=== PATIENT | male | born 1930 | race Caucasian/White ===

== ENCOUNTER 2017-05-06 08:55 | Inpatient (IN) | payer MEDICARE ==
[~2017-05-06] VITALS: Ht 167.6 cm; Wt 78.4 kg
[2017-05-06] MEDS ORDERED: HYDR-3133 PO (09:47)
[2017-05-06] MEDS ORDERED: TAMS0.4C4 PO (09:47)
[2017-05-06] MEDS ORDERED: MAGO400T2 PO (09:47)
[2017-05-06] MEDS ORDERED: FOLI1TAB6 PO (09:47)
[2017-05-06] MEDS ORDERED: METH2.5T PO (09:47)
[2017-05-06] MEDS ORDERED: ADVI200T17 PO (09:47)
[2017-05-06] MEDS ORDERED: DULO1CAP3 PO (09:47)
[2017-05-06] MEDS ORDERED: OXYBXL10 PO (09:47)
[2017-05-06] MEDS ORDERED: OMEP20TA PO (09:47)
[2017-05-06] MEDS ORDERED: ASPI-110 PO (09:47)
[2017-05-06] MEDS ORDERED: B-50TAB4 PO (09:47)
[2017-05-06] MEDS ORDERED: CYAN1TAB8 PO (09:47)
[2017-05-06] MEDS ORDERED: PRED2.5T PO (09:47)
[2017-05-17] MEDS ORDERED: EXPAREL PERI-ARTICULAR INJECTION (TOTAL VOL. 100 ML) P-ARTICULR SCH ×2 (07:00)
[2017-05-17] MEDS ORDERED: TRANEXAMIC ACID INJ 790 MG in SODIUM CHLORIDE 0.9% INJ 100 ML IV SCH ×4 (07:00)
[2017-05-17] MEDS ORDERED: ceFAZolin 2 GM PREMIX 50 ML IV SCH (07:00)
[2017-05-17] MEDS ORDERED: CHLORHEXIDINE GLUCONATE 4% SOLN 120 ML BTL TOPICAL SCH (07:00)
[2017-05-17] MEDS ORDERED: GENTAMICIN SULFATE 80 MG/2 ML VIAL ONE (07:05)
[2017-05-17] MEDS ORDERED: VESI10TA PO (07:09)
[2017-05-17 07:13] VITALS: BP 159/89; PULSE 114; RESP 20; TEMP 98.3; O2SAT 100
[2017-05-17] MEDS ORDERED: SODIUM CHLORID 0.9% 500 ML IV PRN (07:15)
[2017-05-17] MEDS ORDERED: CHLORHEXIDINE GLUCONATE 2 % 1 PACK (2 CLOTHS) TOPICAL PRN (07:15)
[2017-05-17] MEDS ORDERED: INSULIN HUMAN REGULAR 1,000 UNITS/10 ML VIAL SQ PRN (07:15)
[2017-05-17] MEDS ORDERED: LACTATED RINGER'S 1000 ML IV PRN (07:15)
[2017-05-17] MEDS ORDERED: METOPROLOL TARTRATE 25 MG TAB PO PRN (07:15)
[2017-05-17] MEDS ORDERED: POVIDONE IODINE 5% (ANTISEPSIS KIT) 4 APPLICATIONS EACH NARE PRN (07:15)
--- NOTE | 2017-05-17 08:40 | HHI.FF ---
Face to Face Verification Diagnosis: (1) Status post total right knee replacement Physical Therapy Gait training Knee: Total knee, Protocol: Right, Gait training, Full weight bearing Right LE Weight Bearing: WB as tolerated Right LE Range of Motion: Active ROM (AROM, AAROM, PROM, PRE. ROM goal is 0 to 135 degrees.) Nursing Nursing: Dressing changes Dressing Changes: Daily dressing change, Coverderm/Primapore Additional Instructions Remove steristrips on postop day 14. I have seen patient Kj Bradford on 05/17/17. My clinical findings support the need for the requested home health care services because: Ltd mobility - disease progression Limited ability to care for self High risk of falls I certify that my clinical findings support that this patient is homebound because: Post-op weakness Unsteady gait/balance Unsafe to leave home unassisted Rigoberto Gray MD (Charles) May 17, 2017 08:40
[2017-05-17] MEDS ORDERED: MAGNESIUM HYDROXIDE SUSP 30 ML CUP PO PRN (08:45)
[2017-05-17] MEDS ORDERED: TRANEXAMIC ACID INJ 0 MG in SODIUM CHLORIDE 0.9% INJ 100 ML IV SCH (08:45)
[2017-05-17] MEDS ORDERED: ZOLPIDEM TARTRATE 5 MG TAB PO PRN (08:45)
[2017-05-17] MEDS ORDERED: ACETAMINOPHEN/HYDROcodone 325 MG/7.5 MG TAB PO PRN (08:45)
[2017-05-17] MEDS ORDERED: MORPHINE SULFATE 4 MG/ML INJ IV PUSH PRN (08:45)
[2017-05-17] MEDS ORDERED: ONDANSETRON HCL 4 MG/2 ML VIAL IVP PRN (08:45)
[2017-05-17] MEDS ORDERED: Post-op Orders (for Pharmacy) MISC XX ONE (08:45)
[2017-05-17] MEDS ORDERED: SODIUM CHLORIDE 0.9% FLUSH 5 ML FLUSH IVF PRN (08:45)
[2017-05-17] MEDS: DULoxetine HCl DR 60 MG CAP PO SCH (09:00)
[2017-05-17] MEDS: ASPIRIN EC 81 MG TABEC PO SCH ×2 (09:00→20:55)
[2017-05-17] MEDS: SODIUM CHLORIDE 0.9% FLUSH 5 ML FLUSH IVF SCH ×2 (09:00→20:56)
[2017-05-17] MEDS: MAGNESIUM OXIDE 400 MG TAB PO SCH (09:00)
[2017-05-17] MEDS: TOLTERODINE TARTRATE 4 MG CAP LA PO SCH (11:00)
[2017-05-17] MEDS: LACTATED RINGER'S 1000 ML INJ 1,000 ML IV SCH ×2 (11:30→20:56)
[2017-05-17] MEDS ORDERED: ONDANSETRON HCL 4 MG/2 ML VIAL IV PUSH ONE (12:00)
[2017-05-17] MEDS ORDERED: PROPOFOL 200 MG/20 ML AMP IV ONE (12:00)
[2017-05-17] MEDS ORDERED: LACTATED RINGER'S 1000 ML INJ 1,000 ML IV ONE (12:00)
[2017-05-17] MEDS ORDERED: PHENYLEPH/NS 1000 MCG/10 ML SYR IV ONE (12:00)
[2017-05-17] MEDS: KETOROLAC TROMETHAMINE 30 MG/ML (IVP) VIAL IVP SCH ×3 (12:33→20:55)
--- NOTE | 2017-05-17 12:33 | RADRPT ---
EXAM DATE/TIME: 05/17/2017 11:37 [place] COMPARISON: No previous studies available for comparison. INDICATIONS : Post op right knee surgery. MEDICAL HISTORY : None. SURGICAL HISTORY : None. ENCOUNTER: Initial ACUITY: 1 day PAIN SCORE: 0/10 LOCATION: Right knee FINDINGS: Patient is status post placement of a right knee prosthesis. There is good position and alignment of the prosthesis and bony structures. The bony structures are grossly intact. Postsurgical changes are present. CONCLUSION: Good position and alignment on this postoperative examination. Baldev Philippe MD on May 17, 2017 at 12:32 Board Certified Radiologist. This report was verified electronically.
[2017-05-17] MEDS ORDERED: BUPIVACAINE HCL PF 0.5% 30 ML VIAL NERV BLOCK ONE (12:35)
[2017-05-17] MEDS ORDERED: DEXAMETHASONE SOD PHOS PF 10 MG/ML VIAL IV ONE (12:35)
[2017-05-17] MEDS ORDERED: *morphine SULFATE 8 MG/ML PERIprocedure ONLY ONE (12:54)
[2017-05-17] MEDS ORDERED: DO NOT ADM ANY ANTICOAGULANT DRUGS PRN (13:45)
[2017-05-17 15:00] VITALS: BP 149/82; PULSE 73; RESP 18; TEMP 96.1; O2SAT 97
[2017-05-17] MEDS: ACETAMINOPHEN/HYDROcodone 325 MG/7.5 MG TAB PO PRN (16:40)
--- NOTE | 2017-05-17 18:03 | PD.CONS ---
HPI Service [facility] Consult Requested By Orthopedic team, Dr. Gray Reason for Consult Assist with medical management Primary Care Physician Camilla Comer MD Diagnoses: History of Present Illness Written by Paddy Oseguera, acting as scribe for Dr. Rondon on 05/17/17 at 17: 34. Patient is an 86-year-old male with primary medical history of GERD, BPH, arthritis who came in for an elective surgery of his right knee. He is status post right total knee arthroplasty by Dr. Gray. Consulted for medical management. Patient seen and examined today. at the bedside. He is sitting up in the chair reports he is doing okay while sitting up in the chair however he has some pain when he slightly extends his right lower extremity was certain degree. Complaints of diarrhea that started today. Also complains of has not yet voided since surgery. Otherwise, denies SOB/ dyspnea. Denies chest pain, palpitations, headaches, dizziness. Denies fevers, chills, n/v/d. Review of Systems Except as stated in HPI: all other systems reviewed are Neg Past Family Social History Allergies: Coded Allergies: No Known Allergies (Verified , 05/06/17) Past Medical History Arthritis, Felty's Syndrome GERD BPH ?Overactive bladder, urinary incontinence Past Surgical History Back surgery 1992 Prostate, TURP 1999 Gallbladder removal 2002 Bilateral carpal tunnel 2007 Rotator cuff repair right in 2006, left 2008 Hand tendon repair, left 2008 Bilateral cataracts 2008 Right knee meniscus tear 2012 Left knee meniscus tear 2016 Colonoscopy 2009 Endoscopy 2014 Panendoscopy 2010 Reported Medications Reported Meds & Active Scripts Active Reported Vesicare (Solifenacin) 10 Mg Tab 10 Mg PO DAILY Magox 400 (Magnesium Oxide) 400 Mg Tablet 1 Tab PO DAILY B-12 (Cyanocobalamin (Vitamin B-12)) 500 Mcg Tablet 1 Tab PO DAILY B-50 Complex (Vitamin B Complex) 1 Each Tablet.er 1 Tab PO DAILY Advil Pm (Ibuprofen-Diphenhydramine) 200-38 Mg Tab 1 Tab PO HS PRN Aspirin 81 (Aspirin) 81 Mg Tabdr 81 Mg PO DAILY Ditropan XL 24 HR (Oxybutynin Chloride) 10 Mg Tab 10 Mg PO DAILY Hydroxyzine HCl 25 Mg Tab 25 Mg PO HS Prednisone 2.5 Mg Tab 2.5 Mg PO HS Folic Acid 1 Mg Tablet 1 Tab PO MO,,TH,FR,SA,PRAKASH Methotrexate 2.5 Mg Tab 7.5 Mg PO Q7D Tamsulosin (Tamsulosin HCl) 0.4 Mg Cap 0.4 Mg PO HS Omeprazole 20 Mg Tab 20 Mg PO DAILY Duloxetine DR (Duloxetine HCl) 60 Mg Capdr 60 Mg PO DAILY Active Ordered Medications Current Medications Medications (Trade) Dose Ordered Sig/[place] Route Start Time Stop Time Status Last Admin Chlorhexidine Gluconate 1 applic 1 applic ONCE TOPICAL 05/17/17 07:00 05/20/17 06:59 Sodium Chloride 500 ml @ 30 mls/hr [id number] PRN IV 05/17/17 07:15 05/20/17 07:14 (Lr 1000 ml Inj) 1,000 ml @ 80 mls/hr [id number] IV 05/17/17 08:32 05/17/17 11:30 (NS Flush) 2 ml UNSCH PRN IVF 05/17/17 08:45 IV Flush 2 ml 2 ml BID IVF 05/17/17 09:00 (Ancef Inj/NS Inj) 100 ml @ 200 mls/hr Q6H IV 05/17/17 15:00 05/18/17 03:29 (Morphine Inj) 4 mg Q3H PRN IV PUSH 05/17/17 08:45 ([place] 7.5-325 Mg) 1 tab Q4H PRN PO 05/17/17 08:45 05/17/17 16:40 ([place] 7.5-325 Mg) 2 tab Q4H PRN PO 05/17/17 08:45 (Toradol Inj) 15 mg Q6H IVP 05/17/17 10:00 05/19/17 04:01 05/17/17 16:31 (Zofran Inj) 4 mg Q6H PRN IVP 05/17/17 08:45 (Colace) 100 mg BID PO 05/18/17 21:00 (Ambien) 5 mg HS PRN PO 05/17/17 08:45 (Milk Of Magnesia Liq) 30 ml DAILY PRN PO 05/17/17 08:45 (Ecotrin Ec) 81 mg BID PO 05/17/17 09:00 (Cymbalta Dr) 60 mg DAILY PO 05/17/17 09:00 (Atarax) 25 mg HS PO 05/17/17 21:00 (Mag-Ox) 400 mg DAILY PO 05/17/17 09:00 (Rheumatrex) 7.5 mg Q7D PO 05/18/17 09:00 (Flomax) 0.4 mg HS PO 05/17/17 21:00 (Vitamin B12) 500 mcg DAILY PO 05/18/17 09:00 (Protonix) 20 mg DAILY PO 05/18/17 09:00 (Detrol La) 4 mg DAILY PO 05/17/17 11:00 (Deltasone) 2.5 mg HS PO 05/17/17 21:00 Patient Own Medication PT OWN MED: (Solifenacin ([place]es[place]... DAILY PO 05/18/17 09:00 ([place] C) 1 tab DAILY PO 05/18/17 09:00 Miscellaneous Information ALL NURSING DEPARTME... UNSCH PRN .XX 05/17/17 13:45 05/18/17 13:44 Family History 3 siblings have cancer, skin cancer, colon cancer Father has stomach cancer Social History lives with , has 7 children of his own 1 beer almost daily, maximum of 3 beers on special occasions Quit smoking at the age of 38 Denies illicit drug use Physical Exam Vital Signs Vital Signs Date Time Temp Pulse Resp B/P Pulse Ox O2 Delivery O2 Flow Rate FiO2 05/17/17 15:00 96.1 73 18 149/82 97 05/17/17 14:40 97.5 70 16 142/73 96 Room Air 05/17/17 14:00 72 16 147/75 96 Room Air 05/17/17 13:33 15 05/17/17 13:30 70 16 149/80 96 Room Air 05/17/17 13:00 97.8 69 16 157/85 96 Room Air 05/17/17 12:59 15 05/17/17 12:45 70 16 152/88 95 Room Air 05/17/17 12:30 97.2 69 16 153/86 95 Room Air 05/17/17 12:15 69 16 151/85 94 Room Air 05/17/17 12:00 96.9 68 15 150/89 94 Room Air 05/17/17 11:45 68 15 147/88 94 Room Air 05/17/17 11:30 96.7 67 15 149/82 95 Room Air 05/17/17 11:15 72 14 148/81 94 Room Air 05/17/17 11:00 96.3 73 14 141/72 100 Simple Mask 7 05/17/17 07:13 98.3 114 20 159/89 100 Physical Exam GENERAL: This is a well-nourished, well-developed patient, in no apparent distress. SKIN: Warm and dry. HEAD: Normocephalic. EYES: Pupils equal round and reactive. Extraocular motions intact. No scleral icterus. No injection or drainage. ENT: Nose without bleeding. Throat without erythema. Uvula midline. Airway patent. NECK: Trachea midline. Supple. CARDIOVASCULAR: Regular rate and rhythm without murmurs, gallops, or rubs. RESPIRATORY: Clear to auscultation. Breath sounds equal bilaterally. No wheezes , rales, or rhonchi. GASTROINTESTINAL: Abdomen soft, non-tender, nondistended. No guarding. Bowel Sounds active x4. MUSCULOSKELETAL: Extremities without clubbing, cyanosis, or edema. Right lower extremity with Duy wrap, pulses palpable. NEUROLOGICAL: Awake and alert. Cranial nerves II through XII intact. Motor and sensory grossly within normal limits. Normal speech. Laboratory Laboratory Tests Test 05/17/17 07:00 Blood Type O NEGATIVE Antibody Screen NEGATIVE Blood Bank Comment Imaging Last Impressions Knee X-Ray 05/17/17 0832 Signed Impressions: Service Date/Time: Wednesday, May 17, 2017 11:37 - CONCLUSION: Good position and alignment on this postoperative examination. Baldev Philippe MD Assessment and Plan Problem List: (1) Status post total right knee replacement ICD Code: Z96.651 Status: Acute (2) Primary osteoarthritis of right knee ICD Code: M17.11 Status: Acute Assessment and Plan Patient is an 86-year-old male with primary medical history of GERD, BPH, arthritis who came in for an elective surgery of his right knee. He is status post right total knee arthroplasty by Dr. Gray. Consulted for medical management. Status post right total knee arthroplasty - Managed by primary team - Pain management - Physical therapy to eval and treat - Check labs tomorrow BPH Urinary retention - Has not voided since surgery - Bladder scan, straight catheter if greater than 200 mL - Continue with Detrol, Flomax, Arthritis, Felty's syndrome - Continue methotrexate, cymbalta, prednisone GERD - pantoprazole DVT prop SCDs Code Status Full code Discussed Condition With Patient, , nursing This note was transcribed by opal Oseguera. I, Dr. Cabrera Higgins personally performed the history, physical exam, and medical decision making; and confirmed the accuracy of the information in the transcribed note. Authenticated by Dr. Cabrera Higgins on 05/17/17 at 17:34. Paddy Pastrana May 17, 2017 18:03 Cabrera Staples MD May 19, 2017 21:22
[2017-05-17 19:05] VITALS: BP 135/75; PULSE 85; RESP 18; TEMP 96.6; O2SAT 97
[2017-05-17] MEDS: TAMSULOSIN HCL 0.4 MG CAP PO SCH (20:54)
[2017-05-17] MEDS: hydrOXYzine HCL 25 MG TAB PO SCH (20:55)
[2017-05-17] MEDS: predniSONE 5 MG TAB PO SCH (20:55)
[2017-05-18] VITALS (7 sets, daily range): BP systolic 112–164; BP diastolic 64–82; PULSE 82–110; RESP 18–19; TEMP 95.8–98.8; O2SAT 94–97
[2017-05-18] MEDS: ACETAMINOPHEN/HYDROcodone 325 MG/7.5 MG TAB PO PRN (01:01)
[2017-05-18] MEDS: KETOROLAC TROMETHAMINE 30 MG/ML (IVP) VIAL IVP SCH ×4 (03:17→21:38)
--- NOTE | 2017-05-18 06:44 | PD.ORT.PN ---
Subjective Post Op Day #: 1 Subjective Remarks He is doing relatively well. There is not much pain. He had some retention requiring straight catheterization twice. Range of Motion 0 to 95 degrees. Distance Walked 30 feet with PT. Objective Vitals Vital Signs Date Time Temp Pulse Resp B/P Pulse Ox O2 Delivery O2 Flow Rate FiO2 05/18/17 03:41 96.7 86 18 140/67 94 05/18/17 00:29 21 05/18/17 00:06 96.7 88 18 164/74 95 05/17/17 19:05 96.6 85 18 135/75 97 05/17/17 15:00 96.1 73 18 149/82 97 05/17/17 14:40 97.5 70 16 142/73 96 Room Air 05/17/17 14:00 72 16 147/75 96 Room Air 05/17/17 13:33 15 05/17/17 13:30 70 16 149/80 96 Room Air 05/17/17 13:00 97.8 69 16 157/85 96 Room Air 05/17/17 12:59 15 05/17/17 12:45 70 16 152/88 95 Room Air 05/17/17 12:30 97.2 69 16 153/86 95 Room Air 05/17/17 12:15 69 16 151/85 94 Room Air 05/17/17 12:00 96.9 68 15 150/89 94 Room Air 05/17/17 11:45 68 15 147/88 94 Room Air 05/17/17 11:30 96.7 67 15 149/82 95 Room Air 05/17/17 11:15 72 14 148/81 94 Room Air 05/17/17 11:00 96.3 73 14 141/72 100 Simple Mask 7 05/17/17 07:13 98.3 114 20 159/89 100 I/O 05/17/17 05/17/17 05/17/17 05/18/17 05/18/17 05/18/17 07:00 15:00 23:00 07:00 15:00 23:00 Intake Total 1350 ml 955 ml 486 ml Output Total 190 ml 800 ml 30 ml Balance 1160 ml 155 ml 456 ml Intake Oral 240 ml IV Total 150 ml 715 ml 486 ml Other 1200 ml Output Urine Total 750 ml Drainage Total 90 ml 50 ml 30 ml Estimated Blood Loss 100 ml Bladder Scan Volume Amount 670 ml # Voids 0 # Bowel Movements 1 Imaging Last 24 hours Impressions Knee X-Ray 05/17/17 0832 Signed Impressions: Service Date/Time: Wednesday, May 17, 2017 11:37 - CONCLUSION: Good position and alignment on this postoperative examination. Baldev Philippe MD Objective Remarks He is resting comfortably, supine in bed in the [facility]. The dressing is dry and intact. The neurovascular status is intact. Assessment & Plan Ortho Post Op Day #: 1 Problem List: (1) Status post total right knee replacement Plan: Continue postop care and PT. Assessment and Plan Condition: Good. Orthoapedically stable. DVT prophylaxis: ASA, TEDs, sequentials. Discharge plans: Home with [facility]. Has appointment. Rx [place] 7.5/325. Rigoberto Gray MD (Charles) May 18, 2017 06:44
[2017-05-18] MEDS ORDERED: ASPI-99 PO (06:57)
[2017-05-18] MEDS ORDERED: HYDR-3580 PO (06:57)
[2017-05-18 08:16] LABS: HEMATOCRIT 33.8 % (39.0-51.0); REVIEW FLAG FINAL
[2017-05-18] MEDS: ASPIRIN EC 81 MG TABEC PO SCH ×2 (09:00→19:31)
[2017-05-18] MEDS: SODIUM CHLORIDE 0.9% FLUSH 5 ML FLUSH IVF SCH ×2 (09:00→19:31)
[2017-05-18] MEDS ORDERED: METHOTREXATE 2.5 MG TAB PO SCH (09:00)
[2017-05-18] MEDS: SOLIFENACIN 10 MG PO SCH (09:00)
[2017-05-18] MEDS: LACTATED RINGER'S 1000 ML INJ 1,000 ML IV SCH ×2 (09:32→19:31)
[2017-05-18] MEDS: CYANOCOBALAMIN 1,000 MCG TAB PO SCH (10:33)
[2017-05-18] MEDS: DULoxetine HCl DR 60 MG CAP PO SCH (10:33)
[2017-05-18] MEDS: TOLTERODINE TARTRATE 4 MG CAP LA PO SCH (10:33)
[2017-05-18] MEDS: PANTOPRAZOLE SOD 20 MG DELAYED RELEASE TAB PO SCH (10:34)
[2017-05-18] MEDS: MAGNESIUM OXIDE 400 MG TAB PO SCH (10:34)
[2017-05-18] MEDS: VITAMIN B COMPLEX/VIT C TAB PO SCH (10:39)
--- NOTE | 2017-05-18 13:31 | HHI.PR ---
Subjective Remarks Follow-up visit status post right total knee arthroplasty, BPH, GERD. Patient seen and examined today. Reports he's been having urinary retention which has not happened before. His usual problem is usually of urinary incontinence is why he is on Ditropan and Flomax. is at the bedside, concerned about urinary retention and also reported that patient this morning was slightly confused and it has improved after lunch. As per nursing, patient has urinary retention and has to be straight catheter 3 throughout yesterday to this morning. Otherwise, patient denies pain and discomfort. Denies SOB/ dyspnea. Denies chest pain, palpitations, headaches, dizziness. Denies fevers, chills, n/ v/d. Objective Vitals Vital Signs Date Time Temp Pulse Resp B/P Pulse Ox O2 Delivery O2 Flow Rate FiO2 05/18/17 11:54 95.8 83 18 136/64 94 05/18/17 07:51 95.8 93 18 129/68 94 05/18/17 03:41 96.7 86 18 140/67 94 05/18/17 00:29 21 05/18/17 00:06 96.7 88 18 164/74 95 05/17/17 19:05 96.6 85 18 135/75 97 05/17/17 15:00 96.1 73 18 149/82 97 05/17/17 14:40 97.5 70 16 142/73 96 Room Air 05/17/17 14:00 72 16 147/75 96 Room Air 05/17/17 13:33 15 05/17/17 13:30 70 16 149/80 96 Room Air I/O 05/17/17 05/17/17 05/17/17 05/18/17 05/18/17 05/18/17 07:00 15:00 23:00 07:00 15:00 23:00 Intake Total 1350 ml 955 ml 846 ml Output Total 190 ml 800 ml 330 ml Balance 1160 ml 155 ml 516 ml Intake Oral 240 ml 360 ml IV Total 150 ml 715 ml 486 ml Other 1200 ml Output Urine Total 750 ml 300 ml Drainage Total 90 ml 50 ml 30 ml Estimated Blood Loss 100 ml Bladder Scan Volume Amount 670 ml # Voids 0 # Bowel Movements 1 0 Result Diagram: 05/18/17 07 Imaging Last Impressions Knee X-Ray 05/17/17 0832 Signed Impressions: Service Date/Time: Wednesday, May 17, 2017 11:37 - CONCLUSION: Good position and alignment on this postoperative examination. Baldev Philippe MD Objective Remarks GENERAL: This is a well-nourished, well-developed patient, in no apparent distress. SKIN: Warm and dry. HEAD: Normocephalic. EYES: Pupils equal round and reactive. No scleral icterus. No injection or drainage. ENT: Nose without bleeding. Throat without erythema. Uvula midline. Airway patent. NECK: Trachea midline. Supple. CARDIOVASCULAR: Regular rate and rhythm without murmurs, gallops, or rubs. RESPIRATORY: Clear to auscultation. Breath sounds equal bilaterally. No wheezes , rales, or rhonchi. GASTROINTESTINAL: Abdomen soft, non-tender, nondistended. No guarding. Bowel Sounds active x4. MUSCULOSKELETAL: Extremities without clubbing, cyanosis, or edema. Right lower extremity with Duy wrap, pulses palpable. NEUROLOGICAL: Awake and alert. Oriented to self, place. Motor and sensory grossly within normal limits. Normal speech. Procedures Status post right total knee arthroplasty A/P Problem List: (1) Status post total right knee replacement ICD Code: Z96.651 Status: Acute (2) Primary osteoarthritis of right knee ICD Code: M17.11 Status: Acute Assessment and Plan Patient is an 86-year-old male with primary medical history of GERD, BPH, arthritis who came in for an elective surgery of his right knee. He is status post right total knee arthroplasty by Dr. Gray. Consulted for medical management. Status post right total knee arthroplasty - Managed by primary team - Pain management - Physical therapy to eval and treat - H&H within normal BPH Urinary retention - Has not voided since surgery - Bladder scan, straight catheter if greater than 200 mL - Continue with Detrol, Flomax - Patient has been straight cath 3. We'll repeat the bladder scan will insert Perez catheter if continues elevated in 200 retention in the bladder. - UA ordered - Check labs Arthritis, Felty's syndrome - Continue methotrexate, cymbalta, prednisone GERD - pantoprazole DVT prop SCDs Full code Discussed Condition With Patient, , nursing, Dr. Macedo Discharge Planning Plan to discharge home with home healthcare when cleared by primary team. Paddy Pastrana May 18, 2017 13:31
[2017-05-18] MEDS: TAMSULOSIN HCL 0.4 MG CAP PO SCH (19:30)
[2017-05-18] MEDS: predniSONE 5 MG TAB PO SCH (19:30)
[2017-05-18] MEDS: hydrOXYzine HCL 25 MG TAB PO SCH (19:31)
[2017-05-18] MEDS: DOCUSATE SODIUM 100 MG CAP PO SCH (19:31)
[2017-05-18 20:42] LABS: BLOOD, URINE NEG (NEG); COMMENT (UR) CULT NOT INDICATED; CULTURE IF INDICATED CULT NOT INDICATED; GLUCOSE,URINE NEG (NEG); KETONE, URINE NEG (NEG); MUCUS URINE FEW /lpf (OCC); NITRITE,URINE NEG (NEG); PH, URINE 5.5 (5.0-8.5); SQUAMOUS EPITHELIAL CELL URINE <1 /hpf (0-5); URINE COLOR YELLOW (YELLW/STRAW)
[2017-05-19 04:24] VITALS: BP 102/64; PULSE 111; RESP 18; TEMP 98.1; O2SAT 93
[2017-05-19] MEDS: KETOROLAC TROMETHAMINE 30 MG/ML (IVP) VIAL IVP SCH (04:55)
--- NOTE | 2017-05-19 07:09 | PD.ORT.PN ---
Subjective Post Op Day #: 2 Subjective Remarks He is doing quite well. There is virtually no pain. Range of Motion 0 to 98 degrees. Distance Walked 50 feet. Objective Vitals Vital Signs Date Time Temp Pulse Resp B/P Pulse Ox O2 Delivery O2 Flow Rate FiO2 05/19/17 04:24 98.1 111 18 102/64 93 05/18/17 23:48 98.8 110 18 112/64 94 05/18/17 20:18 98.1 89 19 151/82 97 05/18/17 16:00 97.2 82 18 140/73 94 05/18/17 11:54 95.8 83 18 136/64 94 05/18/17 07:51 95.8 93 18 129/68 94 I/O 05/18/17 05/18/17 05/18/17 05/19/17 05/19/17 05/19/17 07:00 15:00 23:00 07:00 15:00 23:00 Intake Total 846 ml 720 ml 360 ml 360 ml Output Total 330 ml Balance 516 ml 720 ml 360 ml 360 ml Intake Oral 360 ml 720 ml 360 ml 360 ml IV Total 486 ml Output Urine Total 300 ml Drainage Total 30 ml # Voids 1 2 2 # Bowel Movements 0 1 0 0 Result Diagram: 05/18/17 0729 Imaging Last 24 hours Impressions Knee X-Ray 05/17/17 0832 Signed Impressions: Service Date/Time: Wednesday, May 17, 2017 11:37 - CONCLUSION: Good position and alignment on this postoperative examination. Baldev Philippe MD Objective Remarks He is resting comfortably, supine in bed in the [facility]. The dressing is dry and intact. There is no erythema nor induration. The neurovascular status is intact. Assessment & Plan Ortho Post Op Day #: 2 Problem List: (1) Status post total right knee replacement Plan: Continue postop care and PT. Assessment and Plan Condition: Good. Orthopaedically stable. DVT prophylaxis: ASA, TEDs at home. Discharge plans: Home with [facility]. Has appointment. Rx Tramadol 50 mg q6h prn. Rigoberto Gray MD (Charles) May 19, 2017 07:09
[2017-05-19] MEDS ORDERED: TRAM50TA PO (07:26)
[2017-05-19 07:56] VITALS: BP 117/61; PULSE 95; RESP 18; TEMP 98; O2SAT 94
[2017-05-19 08:23] LABS: HEMATOCRIT 31.9 % (39.0-51.0); MEAN CELL VOLUME 89.4 FL (80.0-100.0); MEAN CORPUSCULAR HEMOGLOBIN 29.9 PG (27.0-34.0); MEAN CORPUSCULAR HGB CONC 33.4 % (32.0-36.0); PLATELET COUNT 161 TH/MM3 (150-450); RED BLOOD COUNT 3.57 MIL/MM3 (4.50-5.90); RED CELL DISTRIBUTION WIDTH 15.1 % (11.6-17.2); REVIEW FLAG FINAL; WHITE BLOOD COUNT 11.8 TH/MM3 (4.0-11.0)
[2017-05-19] MEDS: SODIUM CHLORIDE 0.9% FLUSH 5 ML FLUSH IVF SCH (09:00)
[2017-05-19] MEDS: VITAMIN B COMPLEX/VIT C TAB PO SCH (09:00)
[2017-05-19] MEDS: SOLIFENACIN 10 MG PO SCH (09:00)
[2017-05-19] MEDS: CYANOCOBALAMIN 1,000 MCG TAB PO SCH (09:00)
[2017-05-19 09:07] LABS: BICARBONATE 25.3 MEQ/L (21.0-32.0); POTASSIUM 3.8 MEQ/L (3.5-5.1)
[2017-05-19] MEDS: ASPIRIN EC 81 MG TABEC PO SCH (10:29)
[2017-05-19] MEDS: TOLTERODINE TARTRATE 4 MG CAP LA PO SCH (10:29)
[2017-05-19] MEDS: DOCUSATE SODIUM 100 MG CAP PO SCH (10:30)
[2017-05-19] MEDS: MAGNESIUM OXIDE 400 MG TAB PO SCH (10:30)
[2017-05-19] MEDS: PANTOPRAZOLE SOD 20 MG DELAYED RELEASE TAB PO SCH (10:30)
[2017-05-19] MEDS: DULoxetine HCl DR 60 MG CAP PO SCH (10:30)
[2017-05-19] MEDS: LACTATED RINGER'S 1000 ML INJ 1,000 ML IV SCH (10:32)
[2017-05-19 11:43] VITALS: BP 127/68; PULSE 98; RESP 18; TEMP 98.3; O2SAT 98
[2017-05-19] MEDS ORDERED: traMADol HCL 50 MG TAB PO PRN (12:00)
--- NOTE | 2017-05-19 16:52 | MP ---
cc: Rigoberto PITTS. DATE OF SURGERY 05/17/17 PREOPERATIVE DIAGNOSIS Primary osteoarthritis right knee POSTOPERATIVE DIAGNOSIS Primary osteoarthritis right knee OPERATION PERFORMED Right total knee arthroplasty with [place] triathlon prosthesis (uncemented). SURGEON Laith Pitts MD ANESTHESIA Spinal with supplemental adductor canal block and local. INDICATIONS AND FINDINGS This 86 year-old man has had right knee pain for over 10 years. He has had progressive worsening to the point that his ambulation tolerance is 200-300 feet. He uses a brace that he thinks helps somewhat. He has been treated with analgesics, anti-inflammatory agents, activity modification exercises, intra-articular corticosteroids and ambulatory aids. His response to these has diminished more recently. 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 X-rays showed significant arthritis in the right knee with loss of joint space to [id number] in the medial compartment with osteophytes in the medial and patellofemoral joints. There was eburnation in the medial compartment. PROCEDURE IN DETAIL The patient was brought to the operating room and a spinal anesthetic was administered. The procedure was done in the clean-air operating suite. The patient had an adductor canal block as well. He received prophylactic antibiotics in the form of Ancef according to protocol and also received tranexamic acid. He was then placed in a supine position on the operating table with a small bolster under the right hip. Pneumatic tourniquet was applied to the right thigh. The limb was then prepped with alcohol, Hibiclens and Chloraprep and draped in the usual manner with the knee draped free. An appropriate time-out procedure was carried out. Local anesthesia was administered into the incision site prior to making the incision. An anterior incision was then made coming from about three fingerbreadths above the superior medial pole of patella down to the tibial tubercle on the medial side. The incision was deepened through the subcutaneous tissues to the retinacular structures which were exposed medially and laterally. A medial retinacular incision was then made from the superior medial pole of the patella down to the tibial tubercle and up into the quadriceps tendon splitting it longitudinally in the medial one-third. The patella was reflected. The infrapatellar fat pad was debulked. The posterior surface of the patella was excised using the oscillating saw taking care to prevent injury to the extensor mechanism. A patella protector was applied to the posterior surface of the patella. Fenestrations were made in the distal end of the femur and proximal end of the tibia for intramedullary referencing guides. The distal femoral cutting guide and jig were assembled for a 5 degree 8-mm cut. Cutting block was stabilized with pins. The jig was removed. The distal femoral cut was completed with the oscillating saw. The sizing guide was then positioned in place. The size was determined to be a size six. The 4:1 cutting block was positioned in place. The anterior and posterior cuts were made followed by posterior and anterior chamfer cuts. Osteophytes were trimmed. The meniscectomies were carried out. The anterior cruciate ligament was excised. The proximal tibial cutting guide and jig were then assembled and positioned appropriately. The pin was used to stabilize for rotation. The depth of cut was verified with a stylus. The cutting block was stabilized with pins. The jig was removed. The proximal tibial cutting guide position was verified with the spacer block. This was then stabilized with a cross pin. Proximal tibial cut was then completed with the oscillating saw. Care was taken to avoid injury to neurovascular and ligamentous structures. The osteophytes were trimmed from the posterior aspect of the femur. Local anesthesia was administered throughout the posterior aspect of the knee with Exparel. The tibial baseplate trial was positioned and checked for size which was a size six. A 9-mm spacer was inserted. The femoral trial component was impacted into place. The tibial baseplate trial was positioned for rotation and stabilized with pins. The patella drill guide was positioned for the 38-mm patella. Drill holes were made. The knee was taken through a range of motion which was easily 0 degrees extension to 145 degrees of flexion with excellent stability and appropriate tracking. The femoral drill holes were made. The patella and femoral trials were removed. The tibial spacer was removed. The bone plug was placed into the femur and tibia for the fenestrations. The tibial punch was impacted through its guide and removed. The trial baseplate was removed. The tibial drill guide was positioned in place and drill holes made. This was then removed. The cut ends of bone were then cleaned with pulse lavage. The tibial baseplate was impacted into place and seated appropriately. The spacer was inserted into this and seated appropriately. The femoral component was then impacted into place and seated appropriately. The patella was then seated with patella vice. The knee was irrigated well with lactated Ringer's solution. Local anesthetic was administered throughout the remainder of the knee with Exparel. Drains were brought out the superolateral aspect of the suprapatellar pouch. Wound closure then commenced using 0 Vicryl interrupted [id number] sutures for retinacular and capsular structures, 2-0 Vicryl interrupted simple sutures with buried knots for the subcutaneous tissues and 4-0 Monocryl continuous subcuticular closure for the skin. The wound was dressed with Steri-Strips followed by dry dressing, sterile Sof-Rol, cooling pad, further sterile Sof-Rol and Duy bandage from the base of toe to mid thigh. The patient was transferred to the recovery room in satisfactory condition having tolerated the procedure well. Counts were correct. Specimens none. Estimated blood loss 100 mL. MD AYO Koenig/ /10:46 AM /4:31 PM
== END 2017-05-19 13:32 | disposition home health service (06) | DRG 470 ==
LOC: HSDI 05-17 06:26 → N06B 05-17 14:53
PROVIDERS: ADMIT Orthopaedic Surgery; ATTEND Orthopaedic Surgery
PROC: 3E0T3BZ Introduction of Anesthetic Agent into Peripheral Nerves and Plexi, Percutaneous Approach (ICD-10-PCS; 2017-05-17)
PROC: 0SRC0JA Replacement of Right Knee Joint with Synthetic Substitute, Uncemented, Open Approach (ICD-10-PCS; principal; 2017-05-17 08:24)
DX: M17.11 Unilateral primary osteoarthritis, right knee (principal); M05.00 Felty's syndrome, unspecified site; I12.9 Hypertensive chronic kidney disease with stage 1 through stage 4 chronic kidney disease, or unspecified chronic kidney disease; M21.161 Varus deformity, not elsewhere classified, right knee; Z87.891 Personal history of nicotine dependence; E78.5 Hyperlipidemia, unspecified; K21.9 Gastro-esophageal reflux disease without esophagitis; N18.9 Chronic kidney disease, unspecified; F32.9 Major depressive disorder, single episode, unspecified; E66.9 Obesity, unspecified; Z68.27 Body mass index [BMI] 27.0-27.9, adult; Z79.52 Long term (current) use of systemic steroids; N40.0 Benign prostatic hyperplasia without lower urinary tract symptoms; R19.7 Diarrhea, unspecified; R33.8 Other retention of urine
CPT/HCPCS: 73560; 80048; 81001; 85014; 85018; 85027; 86850; 86900; 86901; 94150; C1776; C9290; J0690; J1100; J1580; J1885; J2270; J2370; J2405; J7120; J7512

== ENCOUNTER → 2017-05-06 | Outpatient (CLI) | payer MEDICARE ==
[~2017-05-06] MED LIST: ADVI200T17 PO; ASPI-110 PO; ASPI81TA82 PO; B-50TAB4 PO; B-CO1TAB3 PO; CYAN1TAB8 PO; CYMB60CA PO; DULO1CAP3 PO; FOLI1TAB PO; FOLI1TAB6 PO; HYDR-3133 PO; MAGN500T4 OR; MAGO400T2 PO; METH2.5 OR; METH2.5T PO; OMEP20TA PO; OXYBXL10 PO; PRED2.5T PO; TAMS0.4C4 PO; TAMS0.4C67 PO; VESI5TAB PO; VITA500S3 PO
[2017-05-06 11:53] LABS: BLOOD, URINE NEG (NEG); COMMENT (UR) CULT NOT INDICATED; CULTURE IF INDICATED CULT NOT INDICATED; GLUCOSE,URINE NEG (NEG); KETONE, URINE NEG (NEG); MUCUS URINE FEW /lpf (OCC); NITRITE,URINE NEG (NEG); PH, URINE 5.5 (5.0-8.5); URINE COLOR YELLOW (YELLW/STRAW)
[2017-05-06 12:11] LABS: APTT (PATIENT) 27.1 SEC (24.3-30.1); PROTHROMBIN TIME - PATIENT 10.6 SEC (9.8-11.6)
[2017-05-06 12:12] LABS: HEMATOCRIT 42.9 % (39.0-51.0); MEAN CELL VOLUME 91.1 FL (80.0-100.0); MEAN CORPUSCULAR HEMOGLOBIN 30.2 PG (27.0-34.0); MEAN CORPUSCULAR HGB CONC 33.2 % (32.0-36.0); PLATELET COUNT 204 TH/MM3 (150-450); RED BLOOD COUNT 4.71 MIL/MM3 (4.50-5.90); RED CELL DISTRIBUTION WIDTH 15.6 % (11.6-17.2); REVIEW FLAG FINAL; WHITE BLOOD COUNT 6.5 TH/MM3 (4.0-11.0)
[2017-05-06 12:28] LABS: BICARBONATE 27.8 MEQ/L (21.0-32.0); POTASSIUM 4.2 MEQ/L (3.5-5.1)
--- NOTE | 2017-05-06 13:17 | EKG ---
Date Performed: 05/06/2017 Time Performed: 09:33:56 PTAGE: 86 years EKG: Sinus rhythm RIGHT BUNDLE BRANCH BLOCK ABNORMAL ECG Compared to prior electrocardiogram, Right bundle branch bloc k is now present DOCTOR: Gopi Bravo Interpretating Date/Time 05/06/2017 13:15:57
== END ==
LOC: CPRE 08:50
PROVIDERS: ATTEND Orthopaedic Surgery
DX: Z01.812 Encounter for preprocedural laboratory examination (principal); Z01.810 Encounter for preprocedural cardiovascular examination; M17.11 Unilateral primary osteoarthritis, right knee; M79.609 Pain in unspecified limb; I45.10 Unspecified right bundle-branch block
CPT/HCPCS: 36415; 80048; 81001; 85027; 85610; 85730; 93005

== ENCOUNTER 2017-05-20 15:15 | Inpatient (IN) | payer MEDICARE ==
[~2017-05-20] VITALS: Ht 167.6 cm; Wt 83.8 kg
[~2017-05-20 15:15] MED LIST changes: -ASPI-110 PO; +ASPI-99 PO; -ASPI81TA82 PO; -B-CO1TAB3 PO; -CYMB60CA PO; -FOLI1TAB PO; -MAGN500T4 OR; -METH2.5 OR; +PHENYLEPH/NS 1000 MCG/10 ML SYR IV ONE; +PROPOFOL 200 MG/20 ML AMP IV ONE; -TAMS0.4C67 PO; +TRAM50TA PO; +VESI10TA PO; -VESI5TAB PO; -VITA500S3 PO; +ePHEDrine/NS 25 MG/5 ML SYR IV ONE
[2017-05-20] MEDS ORDERED: ACETAMINOPHEN 325 MG TAB PO PRN ×2 (16:15→17:45)
[2017-05-20] MEDS ORDERED: ONDANSETRON HCL 4 MG/2 ML VIAL IVP PRN ×2 (16:15→17:45)
[2017-05-20] MEDS ORDERED: MAGNESIUM HYDROXIDE SUSP 30 ML CUP PO PRN ×2 (16:15→17:45)
[2017-05-20] MEDS ORDERED: VANCOMYCIN INJ 1,000 MG in SODIUM CHLOR 0.9% 250 ML INJ 250 ML IV SCH (16:15)
[2017-05-20] MEDS ORDERED: SODIUM CHLORIDE 0.9% FLUSH 10 ML FLUSH IV FLUSH PRN (16:15)
[2017-05-20] MEDS ORDERED: VANCOMYCIN HCL 1000 MG VIAL ONE (16:19)
[2017-05-20] MEDS: ceFAZolin 2 GM PREMIX 50 ML IV SCH ×2 (16:23→17:22)
[2017-05-20] MEDS ORDERED: GENTAMICIN SULFATE 80 MG/2 ML VIAL ONE ×3 (16:35→18:57)
[2017-05-20] MEDS: LACTATED RINGER'S 1000 ML INJ 1,000 ML IV SCH (17:35)
[2017-05-20] MEDS ORDERED: BISACODYL 10 MG SUPP RECTAL PRN (17:45)
[2017-05-20] MEDS ORDERED: SODIUM CHLORIDE 0.9% FLUSH 5 ML FLUSH IVF PRN (17:45)
[2017-05-20] MEDS ORDERED: Post-op Orders (for Pharmacy) MISC XX ONE (17:45)
[2017-05-20] MEDS ORDERED: DEXMEDETOMIDINE HCL 200 MCG/2 ML VIAL ONE (17:58)
[2017-05-20] MEDS ORDERED: PILL SPLITTER OTHER PRN (19:15)
[2017-05-20] MEDS: KETOROLAC TROMETHAMINE 30 MG/ML (IVP) VIAL IVP SCH (20:00)
[2017-05-20 20:58] VITALS: BP 94/54; PULSE 80; RESP 16; TEMP 97.1; O2SAT 94
[2017-05-20] MEDS ORDERED: DO NOT ADM ANY ANTICOAGULANT DRUGS PRN (21:00)
[2017-05-20] MEDS ORDERED: SODIUM CHLORIDE 0.9% FLUSH 5 ML FLUSH IVF SCH (21:00)
[2017-05-20] MEDS: ASPIRIN EC 81 MG TABEC PO SCH (21:00)
[2017-05-20] MEDS ORDERED: DOCUSATE SODIUM 100 MG CAP PO SCH (21:00)
[2017-05-20] MEDS: TAMSULOSIN HCL 0.4 MG CAP PO SCH (22:27)
[2017-05-20] MEDS: predniSONE 5 MG TAB PO SCH (22:28)
[2017-05-20] MEDS: SODIUM CHLORIDE 0.9% FLUSH 10 ML FLUSH IV FLUSH SCH (22:29)
[2017-05-21] VITALS: BP 98/58; PULSE 78; RESP 16; TEMP 96.6; O2SAT 95
[2017-05-21] MEDS: KETOROLAC TROMETHAMINE 30 MG/ML (IVP) VIAL IVP SCH ×4 (01:29→19:55)
[2017-05-21 04:00] VITALS: BP 100/61; PULSE 89; RESP 16; TEMP 97.3; O2SAT 94
[2017-05-21 04:15] LABS: HEMATOCRIT 28.8 % (39.0-51.0); REVIEW FLAG FINAL
[2017-05-21] MEDS: LACTATED RINGER'S 1000 ML INJ 1,000 ML IV SCH ×2 (06:05→17:24)
[2017-05-21 06:27] VITALS: O2SAT 94
[2017-05-21 08:00] VITALS: BP 107/58; PULSE 81; RESP 18; TEMP 95.9; O2SAT 95
--- NOTE | 2017-05-21 08:26 | PD.ORT.PN ---
Subjective Post Op Day #: 1 Subjective Remarks He is doing fairly well. There is not much pain. Objective Vitals Vital Signs Date Time Temp Pulse Resp B/P Pulse Ox O2 Delivery O2 Flow Rate FiO2 05/21/17 06:27 94 Nasal Cannula 2.00 05/21/17 04:00 97.3 89 16 100/61 94 05/21/17 00:00 96.6 78 16 98/58 95 05/20/17 20:58 97.1 80 16 94/54 94 05/20/17 20:30 78 18 106/54 98 Nasal Cannula 2 05/20/17 20:30 Simple Mask 2.00 05/20/17 20:15 79 16 109/59 99 Nasal Cannula 2 05/20/17 20:00 78 18 110/58 98 Nasal Cannula 2 05/20/17 19:50 98.4 82 14 103/59 99 Nasal Cannula 2 05/20/17 15:40 98.4 100 18 127/67 96 I/O 05/20/17 05/20/17 05/20/17 05/21/17 05/21/17 05/21/17 06:59 14:59 22:59 06:59 14:59 22:59 Intake Total 820 ml 360 ml Output Total 200 ml Balance 820 ml 160 ml Intake Oral 120 ml 360 ml Other 700 ml Output Urine Total 200 ml # Voids 1 Result Diagram: 05/21/17 0349 Objective Remarks He is alert and oriented today. He gives appropriate responses. The dressing is dry and intact. He is resting comfortably, supine in bed. The neurovascular status is intact. Assessment & Plan Ortho Post Op Day #: 1 Problem List: (1) Dehiscence of closure of skin Plan: Continue postop care and antibiotics. (2) Status post total right knee replacement Plan: Continue PT. (3) Accidental fall Plan: Continue PT. Needs to strengthen in order to prevent falls. Assessment and Plan Condition: Good DVT prophylaxis: TEDs, ASA, sequentials. Discharge plans: In light of his age, total knee replacement and recent fall, inpatient rehabilitation (CIR) would be his best option. We will avoid narcotics and tramadol, both of which have caused confusion. Continue IV antibiotics today and tomorrow. Rigoberto Gray MD (Charles) May 21, 2017 08:26
[2017-05-21] MEDS ORDERED: VITAMIN B COMPLEX PO SCH (09:00)
[2017-05-21] MEDS ORDERED: NON-FORMULARY DRUG (Solifenacin (Vesicare) 10 MG) PO SCH (09:00)
[2017-05-21] MEDS: PANTOPRAZOLE SOD 20 MG DELAYED RELEASE TAB PO SCH (09:07)
[2017-05-21] MEDS: TOLTERODINE TARTRATE 4 MG CAP LA PO SCH (09:07)
[2017-05-21] MEDS: CYANOCOBALAMIN 1,000 MCG TAB PO SCH (09:07)
[2017-05-21] MEDS: ASPIRIN EC 81 MG TABEC PO SCH ×2 (09:07→19:52)
[2017-05-21] MEDS: MAGNESIUM OXIDE 400 MG TAB PO SCH (09:07)
[2017-05-21] MEDS: DULoxetine HCl DR 60 MG CAP PO SCH (09:07)
[2017-05-21] MEDS: SODIUM CHLORIDE 0.9% FLUSH 10 ML FLUSH IV FLUSH SCH ×2 (09:08→19:55)
--- NOTE | 2017-05-21 15:50 | PD.CONS ---
[facility] Request[facility] By Orthopedic team, Dr. Gray Reason for Consult Assist with medical management Primary Care Physician Unknown Diagnoses: History of Present Illness Written by Paddy Oseguera, acting as scribe for Dr. Macedo on 05/21/17 at 15: 31. Patient is an 86-year-old male with primary medical history of GERD, BPH, rheumatoid arthritis who initially came to the hospital for elective surgery on 05/17/[address] Gray, he is status post right total knee arthroplasty, s/p fall from home and wound dehiscence. He did well postop and went home with home health care. provided most of the history. States that he went home , home health care nurse noted that the wound has an opening and it was draining serous sanguinous fluid. States that it would need to be looked up by [facility] That same day at night patient got possibly confused, states possibly from the effect of anesthesia and narcotic medication. walked towards the bathroom and pt followed without the use of any walker or any assistive device and he fell on his knees and was unable to get up. called the ambulance to help him get up on the floor and they were advised to go to the hospital. He was then seen by Dr. Gray took him to the OR for I &D of the right knee. Consulted for medical management. Patient seen and examined today. Reports he is doing well. is concerned regarding pain medication requesting to review all his meds making sure that he is on nonnarcotic pain medication as he cannot tolerate narcotics. Denies pain and discomfort. Denies SOB/ dyspnea. Denies chest pain, palpitations, headaches, dizziness. Denies fevers, chills, n/v/d. Denies dysuria, retention. Review of Systems Except as stated in HPI: all other systems reviewed are Neg Past Family Social History Allergies: Coded Allergies: No Known Allergies (Verified , 05/06/17) Past Medical History Arthritis, Felty's Syndrome GERD BPH ?Overactive bladder, urinary incontinence Past Surgical History Back surgery 1992 Prostate, TURP 1999 Gallbladder removal 2002 Bilateral carpal tunnel 2007 Rotator cuff repair right in 2006, left 2008 Hand tendon repair, left 2008 Bilateral cataracts 2007 Right knee meniscus tear 2011 Left knee meniscus tear 2015 Colonoscopy 2008 Endoscopy 2013 Panendoscopy 2009 Reported Medications Reported Meds & Active Scripts Active Tramadol (Tramadol HCl) 50 Mg Tab 50 Mg PO Q6H PRN Adult Aspirin EC Low Strength (Aspirin) 81 Mg Tabec 81 Mg PO BID Reported Vesicare (Solifenacin) 10 Mg Tab 10 Mg PO DAILY Magox 400 (Magnesium Oxide) 400 Mg Tablet 1 Tab PO DAILY B-12 (Cyanocobalamin (Vitamin B-12)) 500 Mcg Tablet 1 Tab PO DAILY B-50 Complex (Vitamin B Complex) 1 Each Tablet.er 1 Tab PO DAILY Ditropan XL 24 HR (Oxybutynin Chloride) 10 Mg Tab 10 Mg PO DAILY Hydroxyzine HCl 25 Mg Tab 25 Mg PO HS Prednisone 2.5 Mg Tab 2.5 Mg PO HS Folic Acid 1 Mg Tablet 1 Tab PO MO,WE,TH,FR,SA,PRAKASH Methotrexate 2.5 Mg Tab 7.5 Mg PO Q7D Tamsulosin (Tamsulosin HCl) 0.4 Mg Cap 0.4 Mg PO HS Omeprazole 20 Mg Tab 20 Mg PO DAILY Duloxetine DR (Duloxetine HCl) 60 Mg Capdr 60 Mg PO DAILY Active Ordered Medications Current Medications Medications (Trade) Dose Ordered Sig/[place] Route Start Time Stop Time Status Last Admin (NS Flush) 2 ml UNSCH PRN IV FLUSH 05/20/17 16:15 Sodium Chloride 2 ml 2 ml BID IV FLUSH 05/20/17 21:00 05/21/17 09:08 Cefazolin Sodium/ Dextrose 50 ml @ 100 mls/hr STAT IV 05/20/17 16:15 05/24/17 16:14 05/20/17 16:23 Vancomycin HCl 1000 mg/Sodium Chloride 250 ml @ 250 mls/hr STAT IV 05/20/17 16:15 05/24/17 16:14 Lactated Ringer's 1,000 ml @ 80 mls/hr [id number] IV 05/20/17 17:35 (Ancef Inj/NS Inj) 100 ml @ 200 mls/hr Q6H IV 05/21/17 01:00 05/22/17 00:59 05/21/17 14:56 (Tylenol) 650 mg Q6H PRN PO 05/20/17 17:45 (Toradol Inj) 15 mg Q6H IVP 05/20/17 20:00 05/22/17 14:01 05/21/17 14:31 (Zofran Inj) 4 mg Q6H PRN IVP 05/20/17 17:45 (Colace) 100 mg BID PO 05/21/17 21:00 (Dulcolax Supp) 10 mg DAILY PRN RECTAL 05/20/17 17:45 (Milk Of Magnesia Liq) 30 ml DAILY PRN PO 05/20/17 17:45 (Ecotrin Ec) 81 mg BID PO 05/20/17 21:00 05/21/17 09:07 (Cymbalta Dr) 60 mg DAILY PO 05/21/17 09:00 05/21/17 09:07 (Mag-Ox) 400 mg DAILY PO 05/21/17 09:00 05/21/17 09:07 (Rheumatrex) 7.5 mg Q7D PO 05/27/17 09:00 (Flomax) 0.4 mg HS PO 05/20/17 21:00 05/20/17 22:27 (Vitamin B12) 500 mcg DAILY PO 05/21/17 09:00 05/21/17 09:07 (Protonix) 20 mg DAILY PO 05/21/17 09:00 05/21/17 09:07 (Detrol La) 4 mg DAILY PO 05/21/17 09:00 05/21/17 09:07 (Deltasone) 2.5 mg HS PO 05/20/17 21:00 05/20/17 22:28 Patient Own Medication PT OWN MED: (Vitami... DAILY PO 05/21/17 09:00 Hold (Pill Splitter) 1 ea UNSCH PRN OTHER 05/20/17 19:15 Miscellaneous Information ALL NURSING DEPARTME... UNSCH PRN .XX 05/20/17 21:00 05/21/17 20:59 Family History 3 siblings have cancer, skin cancer, colon cancer Father has stomach cancer Social History lives with , has 7 children of his own 1 beer almost daily, maximum of 3 beers on special occasions Quit smoking at the age of 38 Denies illicit drug use Physical Exam Vital Signs Vital Signs Date Time Temp Pulse Resp B/P Pulse Ox O2 Delivery O2 Flow Rate FiO2 05/21/17 08:00 95.9 81 18 107/58 95 05/21/17 06:27 94 Nasal Cannula 2.00 05/21/17 04:00 97.3 89 16 100/61 94 05/21/17 00:00 96.6 78 16 98/58 95 05/20/17 20:58 97.1 80 16 94/54 94 05/20/17 20:30 78 18 106/54 98 Nasal Cannula 2 05/20/17 20:30 Simple Mask 2.00 05/20/17 20:15 79 16 109/59 99 Nasal Cannula 2 05/20/17 20:00 78 18 110/58 98 Nasal Cannula 2 05/20/17 19:50 98.4 82 14 103/59 99 Nasal Cannula 2 05/20/17 15:40 98.4 100 18 127/67 96 Physical Exam GENERAL: This is a well-nourished, well-developed patient, in no apparent distress. SKIN: Warm and dry. HEAD: Normocephalic. EYES: Pupils equal round and reactive. Extraocular motions intact. No scleral icterus. No injection or drainage. ENT: Nose without bleeding. Throat without erythema. Uvula midline. Airway patent. NECK: Trachea midline. Supple. CARDIOVASCULAR: Regular rate and rhythm without murmurs, gallops, or rubs. RESPIRATORY: Clear to auscultation. Breath sounds equal bilaterally. No wheezes , rales, or rhonchi. GASTROINTESTINAL: Abdomen soft, non-tender, nondistended. No guarding. Bowel Sounds active x4. MUSCULOSKELETAL: Extremities without clubbing, cyanosis, or edema. Right lower extremity with Duy wrap, pulses palpable. NEUROLOGICAL: Awake and alert. Oriented to self and place, periods of confusion. Cranial nerves II through XII intact. Motor and sensory grossly within normal limits. Normal speech. Laboratory Laboratory Tests Test 05/21/17 03:49 Hemoglobin 9.4 Hematocrit 28.8 Result Diagram: 05/21/17 0349 Assessment and Plan Problem List: (1) Dehiscence of closure of skin ICD Code: T81.31XA Status: Acute (2) Accidental fall ICD Code: W19.XXXA Status: Acute (3) Primary osteoarthritis of right knee ICD Code: M17.11 Status: Acute (4) Status post total right knee replacement ICD Code: Z96.651 Status: Acute Assessment and Plan Patient is an 86-year-old male with primary medical history of GERD, BPH, rheumatoid arthritis who initially came to the hospital for elective surgery on 05/17/[address] Gray, he is status post right total knee arthroplasty, s/p fall from home and wound dehiscence. S/P fall, wound dehiscence Status post right total knee arthroplasty - Stable - Pain management, nonnarcotic medications only - Physical therapy to eval and treat. Plan for inpatient rehabilitation to [place] for further strengthening. - Ancef IV until 05/22/17 BPH Urinary retention - Continue with Detrol, Flomax - If urinary retention noted, consider bladder scan and straight cath Arthritis, Felty's syndrome - Continue cymbalta, prednisone - Off methotrexate 2 weeks prior to surgery, 4 weeks post surgery as per as recommended by his enterprise sales executive - Add vitamin B12, folic acid. CKD 3 - Monitor BMP - Avoid nephrotoxins GERD - pantoprazole DVT prop SCDs Code Status Full code Discussed Condition With Patient, , nursing This note was transcribed by opal Oseguera. I, Dr. Asad Macedo personally performed the history, physical exam, and medical decision making; and confirmed the accuracy of the information in the transcribed note. Authenticated by Dr. Asad Macedo on 05/21/17 at 15:34. Paddy Pastrana May 21, 2017 15:50 Asad Macedo MD May 21, 2017 16:00
[2017-05-21 16:00] VITALS: BP 131/70; PULSE 94; RESP 18; TEMP 97.6; O2SAT 94
--- NOTE | 2017-05-21 17:21 | EKG ---
Date Performed: 05/20/2017 Time Performed: 16:16:53 PTAGE: 86 years EKG: Sinus rhythm WITH OCCASIONAL SUPRAVENTRICULAR PREMATURE COMPLEXES RIGHT BUNDLE BRANCH BLOCK ABNORMAL ECG Compared to prior tracing no significant change PREVIOUS TRACING : 05/06/2017 09.33 DOCTOR: Wil Porras Interpretating Date/Time 05/21/2017 17:18:47
[2017-05-21] MEDS: FOLIC ACID 1 MG TAB PO SCH (17:24)
[2017-05-21] MEDS: TAMSULOSIN HCL 0.4 MG CAP PO SCH (19:52)
[2017-05-21] MEDS: predniSONE 5 MG TAB PO SCH (19:52)
[2017-05-21] MEDS: DOCUSATE SODIUM 100 MG CAP PO SCH (19:53)
[2017-05-21 20:00] VITALS: BP 137/76; PULSE 85; RESP 18; TEMP 97.2; O2SAT 94
[2017-05-22] VITALS: BP 153/79; PULSE 92; RESP 17; TEMP 97.1; O2SAT 94
[2017-05-22] MEDS: KETOROLAC TROMETHAMINE 30 MG/ML (IVP) VIAL IVP SCH ×2 (02:25→08:12)
[2017-05-22 04:00] VITALS: BP 140/68; PULSE 90; RESP 18; TEMP 98.5; O2SAT 94
[2017-05-22 05:17] LABS: HEMATOCRIT 28.7 % (39.0-51.0); REVIEW FLAG FINAL
[2017-05-22 06:34] VITALS: O2SAT 94
[2017-05-22] MEDS: LACTATED RINGER'S 1000 ML INJ 1,000 ML IV SCH (07:05)
[2017-05-22 08:00] VITALS: BP 155/66; PULSE 51; RESP 18; TEMP 97.7; O2SAT 99
[2017-05-22] MEDS: MAGNESIUM OXIDE 400 MG TAB PO SCH (08:12)
[2017-05-22] MEDS: ASPIRIN EC 81 MG TABEC PO SCH (08:12)
[2017-05-22] MEDS: FOLIC ACID 1 MG TAB PO SCH (08:12)
[2017-05-22] MEDS: DULoxetine HCl DR 60 MG CAP PO SCH (08:12)
[2017-05-22] MEDS: TOLTERODINE TARTRATE 4 MG CAP LA PO SCH (08:12)
[2017-05-22] MEDS: PANTOPRAZOLE SOD 20 MG DELAYED RELEASE TAB PO SCH (08:12)
[2017-05-22] MEDS: DOCUSATE SODIUM 100 MG CAP PO SCH (08:13)
[2017-05-22] MEDS: CYANOCOBALAMIN 1,000 MCG TAB PO SCH (08:13)
[2017-05-22] MEDS: SODIUM CHLORIDE 0.9% FLUSH 10 ML FLUSH IV FLUSH SCH (08:15)
[2017-05-22 09:58] VITALS: O2SAT 94
--- NOTE | 2017-05-22 10:10 | HHI.PR ---
Subjective Remarks Follow-up wound dehiscence right TKA. He is doing well pain under control on the bothers him when he is ambulating. Objective Vitals Vital Signs Date Time Temp Pulse Resp B/P Pulse Ox O2 Delivery O2 Flow Rate FiO2 05/22/17 06:34 94 Nasal Cannula 2.00 05/22/17 04:00 98.5 90 18 140/68 94 05/22/17 00:00 97.1 92 17 153/79 94 05/21/17 20:00 97.2 85 18 137/76 94 05/21/17 16:00 97.6 94 18 131/70 94 I/O 05/21/17 05/21/17 05/21/17 05/22/17 05/22/17 05/22/17 07:00 15:00 23:00 07:00 15:00 23:00 Intake Total 360 ml 720 ml Output Total 200 ml 150 ml Balance 160 ml 720 ml -150 ml Intake Oral 360 ml 720 ml Output Urine Total 200 ml 150 ml Bladder Scan Volume Amount 267 ml 275 ml # Voids 1 2 2 # Bowel Movements 1 1 Result Diagram: 05/22/17 0449 Objective Remarks GENERAL: Well-developed, well-nourished in no distress CARDIOVASCULAR: Regular rate and rhythm. RESPIRATORY: No accessory muscle use. Clear to auscultation. Breath sounds equal bilaterally. GASTROINTESTINAL: Abdomen soft, non-tender, nondistended. MUSCULOSKELETAL: Extremities without clubbing, cyanosis, or edema. No obvious deformities. Right knee with dry dressing NEUROLOGICAL: Awake and alert. No obvious cranial nerve deficits. Motor grossly within normal limits. Five out of 5 muscle strength in the arms and legs. Normal speech. A/P Problem List: (1) Dehiscence of closure of skin ICD Code: T81.31XA Status: Acute (2) Accidental fall ICD Code: W19.XXXA Status: Acute (3) Primary osteoarthritis of right knee ICD Code: M17.11 Status: Acute (4) Status post total right knee replacement ICD Code: Z96.651 Status: Acute Assessment and Plan Patient is an 86-year-old male with primary medical history of GERD, BPH, rheumatoid arthritis who initially came to the hospital for elective surgery on 05/17/[address] Gray, he is status post right total knee arthroplasty, s/p fall from home with wound dehiscence. S/P fall, wound dehiscence Status post right total knee arthroplasty - Stable - Pain management, nonnarcotic medications only - Physical therapy to eval and treat. Plan for inpatient rehabilitation to [place] for further strengthening. - Ancef IV until today BPH Urinary retention. Improved - Continue with Detrol, Flomax - If urinary retention noted, consider straight cath Arthritis, Felty's syndrome - Continue cymbalta, prednisone - Off methotrexate 2 weeks prior to surgery, 4 weeks post surgery as per as recommended by his chemical research technician - Continue vitamin B12, folic acid. CKD 3 - Monitor BMP - Avoid nephrotoxins GERD - pantoprazole DVT prop SCDs Discharge Planning Stable for discharge Asad Macedo MD May 22, 2017 10:10
--- NOTE | 2017-05-22 11:29 | PD.ORT.PN ---
Subjective Post Op Day #: 2 Pain Scale: 2 Subjective Remarks does all the talking Range of Motion able to SLR, ROM 10-60 degrees Objective Vitals Vital Signs Date Time Temp Pulse Resp B/P Pulse Ox O2 Delivery O2 Flow Rate FiO2 05/22/17 08:00 97.7 51 18 155/66 99 05/22/17 06:34 94 Nasal Cannula 2.00 05/22/17 04:00 98.5 90 18 140/68 94 05/22/17 00:00 97.1 92 17 153/79 94 05/21/17 20:00 97.2 85 18 137/76 94 05/21/17 16:00 97.6 94 18 131/70 94 I/O 05/21/17 05/21/17 05/21/17 05/22/17 05/22/17 05/22/17 07:00 15:00 23:00 07:00 15:00 23:00 Intake Total 360 ml 720 ml Output Total 200 ml 150 ml Balance 160 ml 720 ml -150 ml Intake Oral 360 ml 720 ml Output Urine Total 200 ml 150 ml Bladder Scan Volume Amount 267 ml 275 ml # Voids 1 2 2 # Bowel Movements 1 1 Result Diagram: 05/22/17 0449 Objective Remarks He is alert and oriented today. He gives appropriate responses. The dressing is dry and intact. He is resting comfortably, supine in bed. The neurovascular status is intact. Assessment & Plan Ortho Post Op Day #: 2 Problem List: (1) Dehiscence of closure of skin Plan: Continue postop care and antibiotics. (2) Status post total right knee replacement Plan: Continue PT. (3) Accidental fall Plan: Continue PT. Needs to strengthen in order to prevent falls. Assessment and Plan stable fro [facility] toradol 10 mg qid prn pain, in addition to tylenol Hos[italist has written all DC orders. Dr. ALEKSANDAR bonilla to follow Domingo Goode MD May 22, 2017 11:29
[2017-05-22] MEDS ORDERED: KETO10 PO (13:05)
[2017-05-22] MEDS ORDERED: TYLE325T PO (13:05)
[2017-05-22] MEDS ORDERED: KETOROLAC TROMETHAMINE 10 MG TAB PO PRN (14:00)
--- NOTE | 2017-05-22 14:07 | PD.ORT.PN ---
Subjective Post Op Day #: 2 Subjective Remarks He is doing better. There is almost no pain. His thinks he is still under influence of [place]. Range of Motion 0 to 100 degrees. Distance Walked 120 feet yesterday. 80 feet in AM, 100 feet in PM today. Objective Vitals Vital Signs Date Time Temp Pulse Resp B/P Pulse Ox O2 Delivery O2 Flow Rate FiO2 05/22/17 09:58 94 21 05/22/17 08:00 97.7 51 18 155/66 99 05/22/17 06:34 94 Nasal Cannula 2.00 05/22/17 04:00 98.5 90 18 140/68 94 05/22/17 00:00 97.1 92 17 153/79 94 05/21/17 20:00 97.2 85 18 137/76 94 05/21/17 16:00 97.6 94 18 131/70 94 I/O 05/21/17 05/21/17 05/21/17 05/22/17 05/22/17 05/22/17 06:59 14:59 22:59 06:59 14:59 22:59 Intake Total 360 ml 720 ml Output Total 200 ml 150 ml Balance 160 ml 720 ml -150 ml Intake Oral 360 ml 720 ml Output Urine Total 200 ml 150 ml Bladder Scan Volume Amount 267 ml 275 ml # Voids 1 2 2 # Bowel Movements 1 1 Result Diagram: 05/22/17 0449 Objective Remarks He is alert and oriented today. He gives appropriate responses. The dressing is dry and intact. He is resting comfortably, supine in bed. TYhere is no drainage, erythema, induration. The neurovascular status is intact. Assessment & Plan Ortho Post Op Day #: 2 Problem List: (1) Dehiscence of closure of skin Plan: Continue postop care. (2) Status post total right knee replacement Plan: Continue PT. (3) Accidental fall Plan: Continue PT. Needs to strengthen in order to prevent falls. Assessment and Plan Condition: Good. Discharge to [facility] today. I have spoken to him and his and will follow him intermittently in [facility]. Rigoberto Gray MD (Charles) May 22, 2017 14:07
--- NOTE | 2017-05-22 14:09 | HHI.FF ---
Face to Face Verification Diagnosis: (1) Status post total right knee replacement (2) Dehiscence of closure of skin (3) Accidental fall Physical Therapy Gait training, Safety evaluation Knee: Total knee, Protocol: Right, Gait training, Full weight bearing Right LE Range of Motion: Active ROM Left LE Weight Bearing: WB as tolerated Additional Instructions ROM goal is 0 to 135 degrees. Nursing Nursing: Dressing changes Dressing Changes: Daily dressing change, Coverderm/Primapore I have seen patient Kj Bradford on 05/22/17. My clinical findings support the need for the requested home health care services because: Limited ability to care for self High risk of falls I certify that my clinical findings support that this patient is homebound because: Post-op weakness Impaired cognitive ability/safety Unsteady gait/balance Unsafe to leave home unassisted Rigoberto Gray MD (Charles) May 22, 2017 14:09
--- NOTE | 2017-05-25 07:21 | MP ---
cc: Hesham PITTS. DATE OF SURGERY: 05/20/2017 PREOPERATIVE DIAGNOSIS Post-op right total knee arthroplasty with accidental fall, contusion and superficial dehiscence knee wound. POSTOPERATIVE DIAGNOSIS Post-op right total knee arthroplasty with accidental fall, contusion and superficial dehiscence knee wound. OPERATION PERFORMED Irrigation, debridement and repair right knee wound. SURGEON Mariel Pitts MD ANESTHESIA Spinal by Bart Mota MD INDICATIONS AND FINDINGS This 86-year-old man had a total knee arthroplasty about three days ago. He had been discharged home with home health care and subsequently after taking medication fell directly onto the knee. He was dressed by the home health nurse and sent to my office where he was found to have disruption of his wound. He is now admitted for care of this. Physical findings show an incision on the anterior aspect of the knee with somewhat disrupted Steri-Strips and a split in the area over the patella measuring approximately 5 cm in length. This does not go through the fascia and the superficial fascia repair covering the deeper fascia appears to be intact. PROCEDURE The patient was brought to the clean-air operating suite. A spinal anesthetic was administered. A pneumatic tourniquet was placed about the right thigh. The limb was then prepped with alcohol, Hibiclens and ChloraPrep and draped in the usual manner with the knee draped free. An appropriate timeout procedure was carried out. The wound was debrided, removing suture material from the anterior aspect and anything that was loose. The knee was then irrigated well with pulse lavage with antibiotic solution. After three liters of irrigation had been used the patient also had irrigation with sterile Betadine diluted 50% with saline. This was irrigated through the wound and allowed to sit for a short period of time. The knee was then irrigated further with the same antibiotic solution for another three liters, and during this time intermittent irrigation was carried out with the Betadine solution. After this was completed the wound appeared satisfactory. Wound closure then commenced using 2-0 Vicryl interrupted simple sutures with buried knots for the subcutaneous tissues. The skin itself was then approximated with 3-0 Prolene subcuticular closure leaving the knots free for eventual removal. Steri-Strips were applied along the entire incision. Dry dressing was applied followed by sterile Sof-Rol and Duy bandage. He was transferred from the operating room to the recovery room in satisfactory condition having tolerated the procedure well. Counts were correct. Specimens none. Estimated blood loss 25 mL. MD AYO Koenig/SANDIP /6:05 PM /6:57 AM
[2017-05-27] MEDS ORDERED: METHOTREXATE 2.5 MG TAB PO SCH (09:00)
== END 2017-05-22 14:17 | DRG 921 ==
LOC: NEDAMB 15:15 → N06A 17:35 → UNDOADMIN 20:41 → N06A 20:41
PROVIDERS: ADMIT Orthopaedic Surgery; ATTEND Orthopaedic Surgery
PROC: 0HDKXZZ Extraction of Right Lower Leg Skin, External Approach (ICD-10-PCS; 2017-05-20)
PROC: 0HQKXZZ Repair Right Lower Leg Skin, External Approach (ICD-10-PCS; principal; 2017-05-20 18:14)
DX: T81.31XA Disruption of external operation (surgical) wound, not elsewhere classified, initial encounter (principal); M05.00 Felty's syndrome, unspecified site; N18.3 Chronic kidney disease, stage 3 (moderate); K21.9 Gastro-esophageal reflux disease without esophagitis; N40.1 Benign prostatic hyperplasia with lower urinary tract symptoms; R33.8 Other retention of urine; R41.0 Disorientation, unspecified; I12.9 Hypertensive chronic kidney disease with stage 1 through stage 4 chronic kidney disease, or unspecified chronic kidney disease; E78.5 Hyperlipidemia, unspecified; E66.9 Obesity, unspecified; T40.4X5A Adverse effect of other synthetic narcotics, initial encounter; W18.30XA Fall on same level, unspecified, initial encounter; Y92.009 Unspecified place in unspecified non-institutional (private) residence as the place of occurrence of the external cause; Z68.29 Body mass index [BMI] 29.0-29.9, adult; Z87.891 Personal history of nicotine dependence; Z96.651 Presence of right artificial knee joint
CPT/HCPCS: 85014; 85018; 93005; 94150; J0690; J1580; J1885; J2370; J3370; J7512